=== PATIENT | male | born 1960 | race Two or more races ===

== ENCOUNTER 2019-12-17 17:11 | Inpatient (IN) | payer MEDICAID, OTHER ==
[~2019-12-17] VITALS: Ht 162.6 cm; Wt 94.4 kg
[2019-12-17 17:58] LABS: Basophils # (auto) 0 10 ^3/uL (0-0.2); Lymphocytes # (auto) 3.3 10 ^3/uL (0.4-5.4); Nucleated Red Blood Cells % 0.1 %; Platelet Count (auto) 132 10^3/uL (140-450)
[2019-12-17 18:00] LABS: Basophils % (auto) 0.4 % (0.0-2.0); Eosinophils # (auto) 0.6 10 ^3/uL (0-0.8); Eosinophils % (auto) 6.1 % (0.0-7.0); Hemoglobin 18.3 g/dL (13.5-17.5); Lymphocytes % (auto) 34.6 % (10.0-50.0); Mean Corpuscular Hemoglobin 32.1 pg (28.0-32.0); Mean Corpuscular Hgb Conc. 33.9 g/dL (32.0-36.0); Mean Corpuscular Volume 94.8 fL (80.0-100.0); Monocytes # (auto) 0.7 10 ^3/uL (0-1.3); Monocytes % (auto) 7.7 % (0.0-12.0); Neutrophils # (auto) 4.9 10 ^3/uL (1.6-8.6); Neutrophils % (auto) 51.2 % (37.0-80.0); Red Cell Distribution Width 14.4 % (11.8-14.3); White Blood Cell 9.5 10^3/uL (4.4-10.8)
[2019-12-17] MEDS ORDERED: SODIUM CHLORIDE 0.9% 1,000 ML IV ONE (18:06)
[2019-12-17 18:12] LABS: INR 0.97 (0.9-1.15)
[2019-12-17 18:15] LABS: Alanine Aminotransferase 36 U/L (16-61); Albumin 3.8 g/dL (3.4-5.0); Anion Gap 7 (5-15); BUN/Creatinine Ratio 14.1; Blood Urea Nitrogen 18 mg/dL (7-18); Calcium 8.4 mg/dL (8.5-10.1); Carbon Dioxide 23 mmol/L (21-32); Chloride 112 mmol/L (98-107); GFR African American 74 mL/min; GFR Non-African American 62 mL/min; Glucose 123 mg/dL (74-106); Potassium 3.2 mmol/L (3.5-5.1); Sodium 142 mmol/L (136-145)
[2019-12-17 18:22] LABS: Alkaline Phosphatase 97 U/L (45-117); Aspartate Aminotransferase 24 U/L (15-37); Bilirubin, Total 0.6 mg/dL (0.2-1.0); Total Protein 7.7 g/dL (6.4-8.2)
[2019-12-17 19:27] LABS: Urine Bacteria NONE SEEN /hpf (None Seen); Urine Blood 1+ /uL (Negative); Urine Specific Gravity 1.012 (1.001-1.035); Urine WBC 2 /hpf (0 - 3)
[2019-12-17] MEDS ORDERED: TEMAZEPAM 15 MG CAP PO PRN (21:15)
[2019-12-17] MEDS ORDERED: ACETAMINOPHEN 325 MG TAB PO PRN (21:15)
[2019-12-17] MEDS ORDERED: POTASSIUM CHL 20 Meq TABLET PO ONE (21:15)
[2019-12-17] MEDS ORDERED: MORPHINE SULF INJ 2 MG/ML SYRINGE 1ML IV PRN (21:15)
[2019-12-17] MEDS ORDERED: NITROGLYCERIN 0.4 MG SL TAB SL PRN (21:15)
[2019-12-17] MEDS ORDERED: ONDANSETRON HCL 4 MG/2 ML VIAL IV PRN (21:15)
[2019-12-17] MEDS ORDERED: ATORVASTATIN 20 MG TAB PO SCH (22:00)
[2019-12-17] MEDS: FAMOTIDINE 20 MG TAB PO SCH (22:42)
[2019-12-17] MEDS: SODIUM CHLORIDE 0.9% 1,000 ML IV SCH (23:03)
[2019-12-18 06:16] LABS: Basophils # (auto) 0 10 ^3/uL (0-0.2); Basophils % (auto) 0.4 % (0.0-2.0); Eosinophils # (auto) 0.2 10 ^3/uL (0-0.8); Eosinophils % (auto) 2.3 % (0.0-7.0); Hemoglobin 17.4 g/dL (13.5-17.5); Lymphocytes # (auto) 1.8 10 ^3/uL (0.4-5.4); Lymphocytes % (auto) 19.6 % (10.0-50.0); Mean Corpuscular Hemoglobin 31.8 pg (28.0-32.0); Mean Corpuscular Hgb Conc. 33.6 g/dL (32.0-36.0); Mean Corpuscular Volume 94.7 fL (80.0-100.0); Monocytes # (auto) 0.8 10 ^3/uL (0-1.3); Monocytes % (auto) 8.8 % (0.0-12.0); Neutrophils # (auto) 6.4 10 ^3/uL (1.6-8.6); Neutrophils % (auto) 68.9 % (37.0-80.0); Nucleated Red Blood Cells % 0.1 %; Platelet Count (auto) 146 10^3/uL (140-450); Red Blood Cells 5.49 10^6/uL (4.5-5.90); Red Cell Distribution Width 14.3 % (11.8-14.3); White Blood Cell 9.3 10^3/uL (4.4-10.8)
[2019-12-18 06:52] LABS: Calcium 7.8 mg/dL (8.5-10.1); Potassium 3.5 mmol/L (3.5-5.1)
[2019-12-18 06:56] LABS: BUN/Creatinine Ratio 14.9
[2019-12-18] MEDS: FAMOTIDINE 20 MG TAB PO SCH ×2 (09:44→23:37)
[2019-12-18] MEDS ORDERED: ASPirin 81 mg TAB PO SCH (10:00)
[2019-12-18] MEDS ORDERED: ENOXAPARIN SOD 40 MG/0.4 ML SYRINGE SC SCH (10:00)
[2019-12-18] MEDS ORDERED: NIFEdipine ER 30 MG TAB PO SCH (10:00)
[2019-12-18] MEDS ORDERED: hydrALAZINE HCL 20 MG/ML VL IV PRN (10:00)
[2019-12-18] MEDS ORDERED: NIFEdipine ER 30 MG TAB PO ONE (10:00)
[2019-12-18] MEDS: SODIUM CHLORIDE 0.9% 1,000 ML IV SCH (10:49)
[2019-12-18] MEDS ORDERED: AMLO10TA13 PO ×2 (12:57→22:50)
[2019-12-18] MEDS ORDERED: LISI40TA11 PO ×2 (12:57→22:50)
[2019-12-18] MEDS ORDERED: ATOR40TA52 PO ×2 (12:57→22:50)
[2019-12-18] MEDS ORDERED: amLODIPine BESYLATE 5 MG TAB PO ONE (13:15)
[2019-12-18] MEDS ORDERED: LISINOPRIL 20 MG TAB PO ONE (13:15)
[2019-12-18] MEDS ORDERED: FUROSEMIDE 40 MG/4 ML VIAL IV SCH (13:30)
[2019-12-18] MEDS ORDERED: POTASSIUM CHL 20 Meq TABLET PO SCH (13:30)
[2019-12-18] MEDS ORDERED: OMNIPAQUE ORAL SOLN 500ml 12mg/ml PO ONE (16:15)
[2019-12-18] MEDS ORDERED: IOTHALAMATE MEGLUMINE INJ 250ML BOT UR ONE (16:16)
[2019-12-18] MEDS ORDERED: DexAMETHasone SOD PHOS 10MG/1ML VIAL INJ IV ONE (22:00)
[2019-12-18] MEDS ORDERED: ATORVASTATIN 20 MG TAB PO SCH (22:00)
[2019-12-18] MEDS ORDERED: AZITHROMYCIN 200 MG/5 ML ORAL SUSP GT ONE (22:00)
[2019-12-18] MEDS ORDERED: CHOLECALCIFEROL (VITD3) 1,000UNIT=25mCg TAB PO ONE (22:00)
[2019-12-18] MEDS ORDERED: ASCORBIC ACID 500 MG TAB PO ONE (22:00)
[2019-12-18] MEDS ORDERED: ZINC SULFATE 220mg CAP or TAB PO ONE (22:00)
[2019-12-18] MEDS ORDERED: AZITHROMYCIN 500MG/ 250ML 250 ML IV ONE (22:15)
[2019-12-18] MEDS ORDERED: levoFLOXacin 250 MG TAB PO ONE (22:45)
[2019-12-18] MEDS ORDERED: ASPI81CH43 PO (22:50)
[2019-12-18] MEDS ORDERED: LEVO750T8 PO (22:50)
[2019-12-18] MEDS ORDERED: FURO1TAB31 PO (22:50)
[2019-12-18] MEDS ORDERED: POTA-220 PO (22:50)
[2019-12-18 23:11] VITALS: BP 144/99
[2019-12-18 23:57] VITALS: BP 145/91
[2019-12-19] MEDS ORDERED: levoFLOXacin 250 MG TAB PO SCH (10:00)
[2019-12-19] MEDS ORDERED: AZITHROMYCIN 200 MG/5 ML ORAL SUSP GT SCH (10:00)
[2019-12-19] MEDS ORDERED: LISINOPRIL 20 MG TAB PO SCH (10:00)
[2019-12-19] MEDS ORDERED: AZITHROMYCIN 500MG/ 250ML 250 ML IV SCH (10:00)
[2019-12-19] MEDS ORDERED: amLODIPine BESYLATE 5 MG TAB PO SCH (10:00)
== END 2019-12-19 00:57 | disposition home or self-care (01) | DRG 199 ==
LOC: ER 17:11 → EDBD 17:11 → EDSEX 17:11 → TELE 17:12 → TELE-WESTW 12-18 21:28
PROVIDERS: ADMIT Nurse Practitioner; ATTEND Nurse Practitioner
DX: I16.1 Hypertensive emergency (principal); E86.0 Dehydration; E87.6 Hypokalemia; E78.5 Hyperlipidemia, unspecified; I10 Essential (primary) hypertension; J98.11 Atelectasis; K40.20 Bilateral inguinal hernia, without obstruction or gangrene, not specified as recurrent; K76.0 Fatty (change of) liver, not elsewhere classified; N40.0 Benign prostatic hyperplasia without lower urinary tract symptoms; Z20.828 Contact with and (suspected) exposure to other viral communicable diseases
CPT/HCPCS: 36415; 70450; 71045; 74176; 80048; 80053; 81001; 83880; 84484; 85025; 85610; 85730; 87426; 93306; 99291; G0378